=== PATIENT | female | born 1950 | race Caucasian/White ===

== ENCOUNTER 2023-10-06 13:56 | Outpatient (CLI) | payer MEDICARE, OTHER | END 2023-10-06 13:57 | disposition home or self-care (01) | LOC: CSHULT 13:56 | PROVIDERS: ATTEND Nurse Practitioner Family | DX: M25.571 Pain in right ankle and joints of right foot (principal); M79.604 Pain in right leg; E78.5 Hyperlipidemia, unspecified; E66.9 Obesity, unspecified ==

== ENCOUNTER 2025-02-14 10:27 | Outpatient (CLI) | payer MEDICARE, OTHER | END 2025-02-14 10:28 | disposition home or self-care (01) | LOC: CSHRAD 10:27 | PROVIDERS: ATTEND Nurse Practitioner Family | DX: R29.898 Other symptoms and signs involving the musculoskeletal system (principal); M47.812 Spondylosis without myelopathy or radiculopathy, cervical region; M50.822 Other cervical disc disorders at C5-C6 level; M50.823 Other cervical disc disorders at C6-C7 level | CPT/HCPCS: 72050 ==